=== PATIENT | female | born 1975 | race American Indian/Alaskan Native ===

== ENCOUNTER 2016-11-12 17:59 | Emergency (ER) | payer SELFPAY ==
--- NOTE | 2016-11-12 18:40 | Emergency Department Report ---
Chief Complaint: Back Pain/Injury Stated Complaint: RT SIDE BODY/BACK PAIN Time Seen by Provider: 11/12/16 18:36 - HPI History of Present Illness: PT c/o back pain that started today, improved after taking Motrin at 1130. 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 - ROS Review of Systems: + neck pain + shoulder pain + back pain -n/v - dysruia - Exam Vital Signs: Vital Signs 11/12/16 18:03 Temperature 98.6 F Pulse Rate 81 Respiratory 18 Rate Blood Pressure 158/73 O2 Sat by Pulse 100 Oximetry Physical Exam: PT looks well, non toxic steady gait No back or neck tenderness on exam MSE screening note: Focused history and physical exam performed. Due to findings the following was ordered: labs ED Disposition for MSE Condition: Stable
--- NOTE | 2016-11-12 19:06 | Emergency Department Report ---
ED Back Pain/Injury HPI - General Chief Complaint: Back Pain/Injury Stated Complaint: RT SIDE BODY/BACK PAIN Time Seen by Provider: 11/12/16 18:36 Source: patient Limitations: No Limitations - History of Present Illness Initial Comments: PT c/o back pain that started today, improved after taking Motrin at 1130. 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 MD Complaint: back pain - Related Data Allergies Allergy/AdvReac Type Severity Reaction Status Date / Time No Known Allergies Allergy Unverified 11/12/16 18:07 ED Review of Systems ROS: Stated complaint: RT SIDE BODY/BACK PAIN Other details as noted in HPI ED Past Medical Hx - Past Medical History Previous Medical History?: No Hx Diabetes: Yes (pre-diabetic) - Surgical History Hx Cholecystectomy: Yes - Social History Smoking Status: Never Smoker Substance Use Type: Alcohol ED Physical Exam - General Limitations: No Limitations ED Course Vital Signs 11/12/16 18:03 Temperature 98.6 F Pulse Rate 81 Respiratory 18 Rate Blood Pressure 158/73 O2 Sat by Pulse 100 Oximetry Critical care attestation.: If time is entered above; I have spent that time in minutes in the direct care of this critically ill patient, excluding procedure time. ED Disposition Condition: Stable
[2016-11-12 19:31] LABS: Bacteria,Urine 1+ /HPF (Negative); Bilirubin,Urine NEG (Negative); Blood,Urine NEG (Negative); Ketones,Urine NEG (Negative); Leukocyte Esterase,Urine TR (Negative); Mucus,Urine FEW /HPF; Nitrite,Urine NEG (Negative); Protein,Urine <15 mg/dL mg/dL (Negative); Urobilinogen,Urine < 2.0 mg/dL (<2.0)
[2016-11-12] MEDS ORDERED: TORADOL IM ONE (19:37)
--- NOTE | 2016-11-12 19:53 | Emergency Department Report ---
ED Female HPI - General Chief complaint: Back Pain/Injury Stated complaint: RT SIDE BODY/BACK PAIN Time Seen by Provider: 11/12/16 18:36 Source: patient Mode of arrival: Ambulatory Limitations: No Limitations - History of Present Illness Initial comments: PT c/o back pain that started today, improved after taking Motrin at 1130. 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 She said she took motrin without relief. Denies urinary symptoms. denies fever or chills. Denies cp, sob or headache. Pain to neck and shoulder subsided but lower back pain continues MD Complaint: other (lower back pain) Onset/Timin -: Last night Severity: severe Severity scale (0 -10): 10 Quality: cramping Consistency: intermittent Improves with: none Worsens with: none Are you Now?: No Associated Symptoms: denies: vaginal discharge, vaginal bleeding, abdominal pain , nausea/vomiting, fever/chills, headaches, loss of appetite, dysuria, hematuria , rash, seizure, shortness of breath, syncope, weakness - Related Data Sexually active: Yes Previous Rx's Medication Instructions Recorded Last Taken Type Nitrofurantoin Winkler/M-Cryst 100 mg PO Q12HR #14 capsule 11/12/16 Unknown Rx [Macrobid CAP] Allergies Allergy/AdvReac Type Severity Reaction Status Date / Time No Known Allergies Allergy Unverified 11/12/16 18:07 ED Review of Systems ROS: Stated complaint: RT SIDE BODY/BACK PAIN Other details as noted in HPI Comment: All other systems reviewed and negative Constitutional: denies: chills, fever Eyes: denies: eye pain Respiratory: no symptoms reported Cardiovascular: denies: chest pain, palpitations, edema, syncope Gastrointestinal: denies: abdominal pain, nausea, vomiting, diarrhea Genitourinary: denies: urgency, dysuria, frequency, hematuria, discharge, abnormal menses Musculoskeletal: back pain. denies: arthralgia, myalgia Skin: denies: rash Neurological: denies: headache, numbness, paresthesias, abnormal gait, vertigo ED Past Medical Hx - Past Medical History Previous Medical History?: Yes Hx Diabetes: Yes (pre-diabetic) - Surgical History Past Surgical History?: Yes Hx Cholecystectomy: Yes - Family History Family history: hypertension - Social History Smoking Status: Never Smoker Substance Use Type: Alcohol - Medications Home Medications: Home Medications Medication Instructions Recorded Confirmed Last Taken Type Nitrofurantoin Winkler/M-Cryst 100 mg PO Q12HR #14 capsule 11/12/16 Unknown Rx [Macrobid CAP] ED Physical Exam - General Limitations: No Limitations General appearance: alert, in no apparent distress - Head Head exam: Present: atraumatic, normocephalic, normal inspection - Neck Neck exam: Present: normal inspection, full ROM. Absent: tenderness, lymphadenopathy - Expanded Neck Exam Expanded Neck exam: Absent: tenderness, midline deformity, anterior neck swelling, tracheal deviation - Respiratory Respiratory exam: Present: normal lung sounds bilaterally. Absent: respiratory distress, chest wall tenderness - Cardiovascular Cardiovascular Exam: Present: regular rate, normal rhythm, normal heart sounds - GI/Abdominal GI/Abdominal exam: Present: soft, normal bowel sounds. Absent: distended, tenderness, guarding, rebound, rigid - Extremities Exam Extremities exam: Present: normal inspection, full ROM, normal capillary refill , other (No CCE. +2 pulses. no nuerovascular compromise.). Absent: tenderness, pedal edema, joint swelling, calf tenderness - Back Exam Back exam: Present: normal inspection, full ROM. Absent: tenderness, CVA tenderness (R), CVA tenderness (L), muscle spasm, paraspinal tenderness, vertebral tenderness, rash noted - Expanded Back Exam Expanded Back exam: Absent: saddle anesthesia Back exam: Negative Straight Leg Raising: Left, Right - Neurological Exam Neurological exam: Present: alert, oriented X3, normal gait, reflexes normal. Absent: motor sensory deficit - Expanded Neurological Exam Expanded Neurological exam: Absent: innattentive, memory loss-remote event, memory loss- recent event, ataxia, receptive aphasia, expressive aphasia, total aphasia, tremor, protecting the airway Patient oriented to: Present: person, place, time Speech: Present: fluid speech Cranial nerves: EOM's Intact: Normal, Gag Reflex: Normal, Tongue Deviation: Normal, Nystagmus: Normal, Facial Sensation: Normal Cerebellar function: Romberg: Normal Upper motor neuron: Pronator Drift: Normal, Sensory Extinction: Normal Sensory exam: Upper Extremity Light Touch: Normal, Upper Extremity Pin Prick: Normal, UE 2 Point Discrimination: Normal, Lower Extremity Light Touch: Normal, Lower Extremity Temperature: Normal, LE 2 Point Discrimination: Normal Motor strength exam: RUE: 5, LUE: 5, RLE: 5, LLE: 5 DTR: bicep (R): 2+, bicep (L): 2+, tricep (R): 2+, tricep (L): 2+, knee (R): 2+ , knee (L): 2+, ankle (R): 2+, ankle (L): 2+ Best Eye Response (Abi): (4) open spontaneously Best Motor Response (Abi): (6) obeys commands Best Verbal Response (Abi): (5) oriented [place] Total: 15 - Psychiatric Psychiatric exam: Present: normal affect, normal mood - Skin Skin exam: Present: warm, dry, intact, normal color. Absent: rash ED Course Vital Signs 11/12/16 18:03 Temperature 98.6 F Pulse Rate 81 Respiratory 18 Rate Blood Pressure 158/73 O2 Sat by Pulse 100 Oximetry - Reevaluation(s) Reevaluation #1: 11/12/16 20:06 Patient given Toradol 60 mg im ED Medical Decision Making - Medical Decision Making Patient here with lower back pain without any injuries. Patient found cecilia have UTI. she was given Toradol 60 mg im for pain with relief. Patient educated on discharge diagnosis and [place] plans. Discharge home in stable condition with prescription for Macrobid. Critical care attestation.: If time is entered above; I have spent that time in minutes in the direct care of this critically ill patient, excluding procedure time. ED Disposition Clinical Impression: Acute cystitis without hematuria Back pain Qualifiers: Back pain location: low back pain Chronicity: acute Back pain laterality: bilateral Sciatica presence: without sciatica Qualified Code(s): M54.5 - Low back pain Disposition: DC-01 TO HOME OR SELFCARE Is pt being admited?: No Does the pt Need Aspirin: No Condition: Stable Instructions: Urinary Tract Infection in Women (ED), Back Pain (ED) Additional Instructions: Take antibiotic as prescribed increase fluid intake Prescriptions: Nitrofurantoin Winkler/M-Cryst [Macrobid CAP] 100 mg PO Q12HR #14 capsule Referrals: PRIMARY CARE, [Primary Care Provider] - 11/15/16 Forms: Work/School Release Form
[2016-11-12 20:10] VITALS: BP 122/68
== END 2016-11-12 20:07 | disposition home or self-care (01) ==
LOC: ED 17:59
DX: N30.00 Acute cystitis without hematuria (principal); M54.5 Low back pain; M54.2 Cervicalgia; M25.511 Pain in right shoulder
CPT/HCPCS: 81001; 81025; 93005; 93010; 96372; 99283; J1885